=== PATIENT | male | born 1980 | race Caucasian/White ===

== ENCOUNTER → 2019-01-28 | Outpatient (CLI) | payer OTHER ==
--- NOTE | 2019-01-28 10:14 | RADIOLOGY REPORT (SQ) ---
EXAM DESCRIPTION: CT ABD/PELVIS WITH IV ORAL COMPLETED DATE/TIME: 01/28/2019 9:24 am REASON FOR STUDY: K42.9 UMBILICAL HERNIA WITHOUT OBSTRUCTION OR GANGRENE K42.9 UMBILICAL HERNIA WIT HOUT OBSTRUCTION OR GANGRENE COMPARISON: CT abdomen pelvis 08/27/2012, 09/17/2012, 04/17/2014 TECHNIQUE: CT scan of the abdomen and pelvis performed using helical scanning technique with dynamic intravenous contrast injection. Patient drank oral contrast. Images reviewed with lung, soft tissue , and bone windows. Reconstructed coronal and sagittal MPR images reviewed. Delayed images for evalua tion of the urinary system also acquired. All images stored on PACS. All CT scanners at this facility use dose modulation, iterative reconstruction, and/or weight based d osing when appropriate to reduce radiation dose to as low as reasonably achievable (ALARA). [facility]: Dose Right [facility]: CareDose [facility]: Dose Right [facility]: Teradose 4D [facility]: Wistone CONTRAST TYPE AND DOSE: contrast/concentration: Isovue 350.00 mg/ml; Total Contrast Delivered: 100.0 ml; Total Saline Delivered: 72.0 ml RENAL FUNCTION: None required. The patient is less than 50 years old. RADIATION DOSE: CT Rad equipment meets quality standard of care and radiation dose reduction techniq ues were employed. CTDIvol: 26.7 - 31.5 mGy. DLP: 3213 mGy-cm.. LIMITATIONS: Obese patient, portions of the anterior abdominal wall or cropped from the field of vie w FINDINGS: Patient has a supraumbilical midline ventral hernia repair which is intact, best shown on sagittal reconstruction images 42-56, and axial images 33 through 48. About 5 cm inferior to the intact ventral hernia repair, the patient's [place] umbilicus is present co ntaining mesenteric fat. This is best shown on axial image 60 and sagittal reconstruction image 56. No bowel protrudes into the umbilical fat. No lumbar or inguinal hernia is identified. LOWER CHEST: Stable 12 mm calcified granuloma right lower lobe LIVER: Normal size. No masses. No dilated ducts. SPLEEN: Normal size. No focal lesions. PANCREAS: No masses. No significant calcifications. No adjacent inflammation or peripancreatic fluid collections. Pancreatic duct not dilated. GALLBLADDER: No identified stones by CT criteria. No inflammatory changes to suggest cholecystitis. ADRENAL GLANDS: No significant masses or asymmetry. RIGHT KIDNEY AND URETER: No solid masses. No significant calcifications. No hydronephrosis or hyd roureter. LEFT KIDNEY AND URETER: No solid masses. No significant calcifications. No hydronephrosis or hydr oureter. AORTA AND VESSELS: No aneurysm. No dissection. Renal arteries, SMA, celiac without stenosis. RETROPERITONEUM: No retroperitoneal adenopathy, hemorrhage or masses. BOWEL AND PERITONEAL CAVITY: Patient drank oral contrast. No masses or inflammatory changes. No free fluid or peritoneal masses. APPENDIX: Normal. PELVIS: No mass. No free fluid. Normal bladder. ABDOMINAL WALL: As above. BONES: No significant or acute findings. OTHER: No other significant finding. IMPRESSION: Intact supraumbilical midline ventral hernia repair. TECHNICAL DOCUMENTATION: JOB ID: [id number] Quality ID # [id number]: Final reports with documentation of one or more dose reduction techniques (e.g., Au tomated exposure control, adjustment of the mA and/or kV according to patient size, use of iterative reconstruction technique) 2010 [employer]- All Rights Reserved Reading location - IP/workstation name: [email or web address]
== END ==
LOC: RAD 09:42
PROVIDERS: ATTEND Surgery
DX: K42.9 Umbilical hernia without obstruction or gangrene (principal)
CPT/HCPCS: 74177; 82565

== ENCOUNTER 2019-03-24 11:42 | Day surgery (SDC) | payer OTHER ==
[2019-03-22 09:46] LABS: HEMATOCRIT 45.2 % (37.9-51.0); HEMOGLOBIN 15.6 g/dL (13.5-17.0); MEAN CORPUSCULAR HEMOGLOBIN 29.9 pg (27.0-33.4); MEAN CORPUSCULAR HGB CONC 34.5 g/dL (32.0-36.0); MEAN CORPUSCULAR VOLUME 87 fl (80-97); PLATELET COUNT 185 10^3/uL (150-450); RED BLOOD COUNT 5.21 10^6/uL (4.35-5.55); RED CELL DISTRIBUTION WIDTH 13.7 % (11.5-14.0); WHITE BLOOD COUNT 7.9 10^3/uL (4.0-10.5)
--- NOTE | 2019-03-22 11:13 | RADIOLOGY REPORT (SQ) ---
EXAM DESCRIPTION: CHEST PA/LATERAL COMPLETED DATE/TIME: 03/22/2019 10:39 am REASON FOR STUDY: PRE-OP COMPARISON: 10/31/2012 EXAM PARAMETERS: NUMBER OF VIEWS: two views TECHNIQUE: Digital Frontal and Lateral radiographic views of the chest acquired. RADIATION DOSE: NA LIMITATIONS: none FINDINGS: LUNGS AND PLEURA: No opacities, masses or pneumothorax. No pleural effusion. MEDIASTINUM AND HILAR STRUCTURES: No masses or contour abnormalities. 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 HEART AND VASCULAR STRUCTURES: Heart normal size. No evidence for failure. BONES: No acute findings. HARDWARE: None in the chest. OTHER: No other significant finding. IMPRESSION: NO SIGNIFICANT RADIOGRAPHIC FINDING IN THE CHEST. TECHNICAL DOCUMENTATION: JOB ID: [id number] [employer]- All Rights Reserved Reading location - IP/workstation name: [email or web address]
[2019-03-22 11:56] LABS: ANION GAP 9 (5-19); BLOOD UREA NITROGEN 17 mg/dL (7-20); CALCIUM 9.8 mg/dL (8.4-10.2); CARBON DIOXIDE 31 mmol/L (22-30); CHLORIDE 100 mmol/L (98-107); GLUCOSE 77 mg/dL (75-110); POTASSIUM 4.1 mmol/L (3.6-5.0); SODIUM 140.4 mmol/L (137-145)
--- NOTE | 2019-03-22 12:59 | EKG REPORT ---
SEVERITY:- NORMAL ECG - SINUS RHYTHM : Confirmed by: Kendall Rachel MD 22-Mar-2019 12:58:38
[~2019-03-24 11:42] MED LIST: CIPROFLOXACIN 400 MG/D5W RTU 400 MG/200 ML RTUPB IV PRN; LACTATED RINGERS 1000 ML IV PRN; LIDOCAINE 0.5% INJ-PF (5 MG/ML) 50 ML SDV SUBCUT PRN
[2019-03-24] MEDS ORDERED: MIDAZOLAM 2 MG/2 ML INJ ONE (12:12)
[2019-03-24] MEDS ORDERED: PROPOFOL INJ 200 MG/20 ML VIAL IV ONE (12:12)
[2019-03-24] MEDS ORDERED: HYDROMORPHONE HCL INJ/PF 2 MG/ML AMPULE ONE (12:12)
[2019-03-24] MEDS ORDERED: BUPIVACAINE HCL 0.25 % INJ/PF (2.5 MG/1 ML) 30 ML VIAL ONE (12:42)
[2019-03-24] MEDS ORDERED: CIPROFLOXACIN 400 MG/D5W RTU 400 MG/200 ML RTUPB IV ONE (12:57)
[2019-03-24] MEDS ORDERED: ACETAMINOPHEN 1,000 MG/100 ML RTUPB IV ONE (14:02)
[2019-03-24] MEDS ORDERED: DIPHENHYDRAMINE HCL 50 MG/ML VIAL IV PRN (14:27)
[2019-03-24] MEDS ORDERED: MEPERIDINE HCL/PF INJ 25 MG/1 ML DISP.SYRIN IV PRN (14:27)
[2019-03-24] MEDS ORDERED: ONDANSETRON HCL INJ/PF 4 MG/2 ML SDV IV PRN (14:27)
[2019-03-24] MEDS ORDERED: FENTANYL CITRATE INJ/PF 100 MCG/2 ML AMPUL IV PRN ×3 (14:27)
[2019-03-24] MEDS ORDERED: KETOROLAC TROMETHAMINE 10 MG TABLET PO PRN (15:22)
--- NOTE | 2019-03-24 15:22 | Discharge Summary ---
Discharge Summary (SDC) - Discharge Final Diagnosis: umbilical hernia Date of Surgery: 03/24/19 Discharge Date: 03/24/19 Condition: Good Treatment or Instructions: [facility] [address], [place] [address] Discharge Instructions: Laparoscopic Surgery 1. General Information: a. DO NOT DRIVE a car or operate dangerous machinery for 3-4 days or while taking narcotic pain pills. b. DO NOT consume alcohol, tranquilizers, sleeping medications or any non- prescribed medications for 24 hours unless approved by your doctor or as long as taking narcotic prescription medications. c. DO NOT make important decisions or sign any important papers for the first 24 hours after surgery. d. When discharged home the same day of surgery have a responsible person with you for the first night. 2. Activity Restrictions: 8 weeks. a. NO heavy lifting, straining abdominal muscles, bending over a lot, yard work, house work, or sports for [address] NOT drive for 3-4 days . c. It is fine to go for walks, up and down steps, ride in a car. d. Elevate your head when sleeping/resting. 3. Treatment: a. You may shower 48 hours after surgery, no baths or swimming for 2 weeks. Leave steri strips (paper bandaids) on while showering. If still on at postoperative visit they will be removed then. b. Drainage of fluid or blood is not unusual from an incision. If occurs, you can clean with peroxide and cotton ball daily and cover with dry gauze until the wound seals. c. If a lot of bleeding occurs, you can hold pressure with a gauze or cloth over the site for 10 minutes and it will usually stop. If bleeding continues you will need to call for possible evaluation in office or emergency room. 4. Medications: a. Toradol_ may be taken for pain as needed, one tablet every 6 hours. b. You should resume all normal medications unless a change is specified by your doctors. 5. Diet: Begin with clear liquids and may progress to your normal diet if not nauseated. No high fat, high protein foods the day of surgery. 6. The following may occur after laparoscopic surgery: a. Shoulder or upper back ache from retained gas that should resolve in 1-2 days b. Soreness and bruising at incision sites will resolve with time. c. Scrotal swelling (labia in women) and bruising is often seen after hernia surgery. d. Sore throat e. Fatigue may last days to weeks. f. Difficulty urinating may occur and may need to come into emergency room for urinary catheter placement. 7. Notify Physician If: a. Worsening or pain not improved with pain medication b. Persistent nausea and vomiting c. Fever above 101 d. Persistent bleeding or swelling at operative site e. Unable to urinate and uncomfortable bladder 6-8 hours after surgery 8..Follow Up Care: a. Schedule a follow up appointment with your doctor for 2 weeks. In the event of any postoperative problems or questions or you may call the office during business hours or the On-Call physician evenings and weekends at [facility]. [facility] I understand the instructions for my postoperative care as described above and a copy has been given to me. Patient/Significant Other Witness Date Prescriptions: Ketorolac Tromethamine [Toradol 10 mg Tablet] 10 mg PO Q6HP PRN #20 tablet PRN Reason: Referrals: YE ESPINAL MD [Primary Care Provider] - Discharge Diet: As Tolerated Discharge Activity: Balance Activity w/Rest, No Lifting Over 10 Pounds, No Lifting/Push/Pulling, Walk Frequently Report the Following to Your Physician Immediately: Nausea, Vomiting, Fever over 101 Degrees, Unusual Bleeding, Redness, Swelling, Warmth, Drainage-Foul Smelling
--- NOTE | 2019-03-24 15:23 | Operative Report ---
Operative Report DATE OF SURGERY: 03/24/19 PREOPERATIVE DIAGNOSIS: Umbilical hernia; morbid obesity POSTOPERATIVE DIAGNOSIS: Same with abdominal wall stitches and intra-abdominal adhesions OPERATION: 1. Laparoscopic lysis of adhesions. 2. Laparoscopic umbilical herniorrhaphy with 11.[address] mesh SURGEON: SAVANNAH CANO 1ST MANAGER PRIMARY: AMOR DELEON ANESTHESIA: GA TISSUE REMOVED OR ALTERED: Adhesions COMPLICATIONS: None ESTIMATED BLOOD LOSS: Scant INTRAOPERATIVE FINDINGS: See below PROCEDURE: The patient was taken to the main operating room where general anesthesia was ducted abdomen exposed, prepped and draped in sterile fashion including Ioban to cover a small midline epithelialized area of skin several centimeters above the umbilicus. Surgical plan surgical timeout were conducted. A left upper quadrant stab wound was made with a knife Veress needle inserted the peritoneal cavity pneumoperitoneum was established. Veress needle was removed, and a 5 mm ports inserted uneventfully. Under direct visualization 2 additional ports were placed one in the left lower quadrant and one in the right mid field. Using a flexible 5 mm scope, we explored the peritoneal cavity. There is no evidence of visceral or vascular injury as result of insertion of ports. There were moderate extensive adhesions between the greater omentum and the anterior abdominal wall, some element of fatty incarceration into the umbilical hernia. All adhesions were taken down under direct visualization with hook cautery and gentle pressure. There was a small 3 mm hernia above the umbilical hernia with incarcerated fat which was decompressed. Careful inspection of the anterior abdominal wall revealed 2 nonabsorbable horizontally oriented sutures just to the left of midline approximately 10 cm above the umbilicus. These appear to be consistent with previous midline surgery, likely Marlex mesh with complete biological incorporation inserted in 2008.. The falciform ligament was taken down for approximately 6 cm. We now estimated a prosthetic size of approximately 11.4 cm to cover the defect. Prior to bringing the prosthesis onto the field, we closed the umbilical hernia which is approximately 1/2 to 2 cm in diameter transversely with 2 fig [id number] #1 PDS sutures. This was accomplished transabdominally by making a small jae in the umbilical skin centrally, and using the disposable suture passer, passing the PDS transabdominally under direct visualization. The pneumoperitoneum was decompressed, and not secured, thereby closing the fascial defect completely. Photos were taken. We now brought onto the field a non- Bard, ventral light ST 11.4 cm mesh. This was affixed with stitches of 0 PDS at the 12, 3, 6, and 9:00 positions. The mesh was oriented, moistened, rolled, brought to the anterior abdominal wall uneventfully at the right mid port site incision. The mesh was unrolled, brought to the anterior abdominal wall at the 12, 3, 6, 9:00 positions after making a small jae in the skin after anesthetizing the s kin with 1% plain lidocaine. Suture passer again was used to bring the respective 0 PDS sutures up to the intra-abdominal wall. Pneumoperitoneum was decompressed and all not secured. We now secured the mesh to the intervening segments with multiple applications of the PDS stapler. Including photos were obtained. We are very satisfied with the aesthetics of the repair. We checked the peritoneal cavity bleeding and there was none. We felt the operation was complete. All sponge and counts are correct. Ports were removed uneventfully, wounds closed with benzoin Steri- Strips and 2-0 Vicryl suture. Patient was awakened from anesthesia, taken to recovery room in stable condition. The physician orthodontic technician assistant, Ms. Ndiaye, provided assistance during this case by: Assisting and port insertion, retracting tissue, instillation of local anesthesia and closure of skin incisions.
[2019-03-24] MEDS ORDERED: FENTANYL CITRATE INJ/PF 100 MCG/2 ML AMPUL ONE (15:51)
[2019-03-24] MEDS ORDERED: OXYCODONE HCL IR 5 MG TABLET ONE (16:42)
[2019-03-24 18:13] VITALS: BP 128/80
[2019-03-24] MEDS ORDERED: ROCURONIUM BROMIDE INJ 50 MG/5 ML VIAL IV ONE (19:11)
[2019-03-24] MEDS ORDERED: SUCCINYLCHOLINE CHLORIDE INJ 200 MG/10 ML VIAL ONE (19:11)
[2019-03-24] MEDS ORDERED: KETOROLAC TROMETHAMINE 60 MG/2 ML SDV ONE (19:11)
[2019-03-24] MEDS ORDERED: DEXAMETHASONE SOD PHOSPHATE INJ 4 MG/1 ML VIAL ONE (19:11)
[2019-03-24] MEDS ORDERED: ONDANSETRON HCL INJ/PF 4 MG/2 ML SDV ONE (19:11)
== END 2019-03-24 17:40 | disposition home or self-care (01) ==
LOC: OROUT 11:42
PROVIDERS: ATTEND Surgery
DX: K42.9 Umbilical hernia without obstruction or gangrene (principal); K66.0 Peritoneal adhesions (postprocedural) (postinfection); E78.00 Pure hypercholesterolemia, unspecified; E11.9 Type 2 diabetes mellitus without complications; E66.01 Morbid (severe) obesity due to excess calories; Z88.8 Allergy status to other drugs, medicaments and biological substances; Z88.0 Allergy status to penicillin; Z88.5 Allergy status to narcotic agent; Z87.891 Personal history of nicotine dependence; Z79.84 Long term (current) use of oral hypoglycemic drugs; Z79.899 Other long term (current) drug therapy; Z68.43 Body mass index [BMI] 50.0-59.9, adult
CPT/HCPCS: 93005; 36415; 82962; 85027; 80048; 71046; 93010; 49652; C1781; J2250; J3490; J1100; J1885; J3010; J1170; J0330; J2405; J2704; J0744; J0131; 752